=== PATIENT | male | born 1995 | race Caucasian/White ===

== ENCOUNTER 2020-09-14 00:51 | Day surgery (SDC) | payer OTHER, SELFPAY ==
[2020-08-24 14:52] VITALS: BMI 28.8
--- NOTE | 2020-09-14 07:56 | WPDHPUPDATE1 ---
History and Physical Update Update Date/Time: 09/14/20 07:56 History and Physical has been reviewed, including an updated exam of the patient. There are NO changes in the patient's condition. Risks, benefits, and alternatives have been discussed and questions answered. Patient agrees to proceed with procedure.
[2020-09-14 08:02] VITALS: BMI 27.4
[2020-09-14 08:05] VITALS: BP 130/78; PULSE 75; RESP 20; TEMP 36.3; O2SAT 96
[2020-09-14] MEDS: LACTATED RINGERS 1,000 ML 150 ML IV CONT (08:16)
--- NOTE | 2020-09-14 08:31 | P.PNAN_ITS ---
Anes - Initial Pre Proc Eval Procedure: Operation Date: 09/14/20 09:00 Proposed Procedures p Esophagogastroduodenoscopy & Colonoscopy - Parrish Sheikh MD Date/Time: 09/14/20 08:31 Surgeon: Parrish Sheikh MD Pre Op Diagnosis: blood in stool, epigastric pain Patient Data Age: 25 Gender: M Height: 1.88 m Weight: 96.9 kg Allergies Allergy/AdvReac Type Severity Reaction Status Date / Time No Known Allergies Allergy Verified 09/14/20 08:00 Home Medications Medication Instructions Recorded Confirmed Type sodium,potassium,mag sulfates 17.5 See Rx Instructions PO .COMPLEX 08/15/20 Rx gram-3.13 gram-1.6 gram oral soln #354 ml Patient hx anesthesia problems: none Family hx anesthesia problems: none [facility] Past Medical History Medical History (Updated 09/14/20 @ 08:30 by Robby Younger MD) Asthma Depression Social History Social History Smoking status: Never smoker Alcohol intake: never Substance use: never Substance use type: does not use Living arrangements: with family Spiritual care concerns: No Anes - Eval Final PreProcedure Day of Procedure 09/14/20 08:31 Patient weight: overweight Heart: regular rate and rhythm Lungs: clear to auscultation Airway: Mallampati scale class II Neurological: alert and oriented Last oral intake: >/= 8 hours ASA classification: II Emergent: no Anesthetic plan: proceed Anesthesia type and monitoring: general GIVS and standard monitoring Informed Consent: The patient's anesthetic plan and its attendant risks and benefits were discussed with the patient/family/POA. Questions were solicited and answers provided to the satisfaction of the patient/family/POA.
--- NOTE | 2020-09-14 09:24 | P.CONGI_ITS ---
Assessment and Plan Assessment and plan (1) IBS (irritable bowel syndrome): Code(s): K58.9 - Irritable bowel syndrome without diarrhea Status: Acute Assessment and Plan: Symptom complex most consistent with irritable bowel syndrome. Plan is for high-fiber diet. given patient's tTG level is elevated. Would avoid wheat until this is evaluated more thoroughly with EGD and biopsy. (2) Epigastric abdominal pain: Code(s): R10.13 - Epigastric pain Status: Acute Assessment and Plan: Patient has abdominal pain intermittently appears to be in the epigastric area. This along with his elevated tTG will prompt an EGD for evaluation also biopsied the small bowel. Trial of antacids in the interim is suggested. (3) Blood in stool: Code(s): K92.1 - Melena Status: Acute Assessment and Plan: Patient describes intermittent bright red blood per rectum for this reason colonoscopy will be performed. As well as to evaluate his abdominal pain. (4) Elevated anti-tissue transglutaminase (tTG) IgA level: Code(s): R76.8 - Other specified abnormal immunological findings in serum Status: Acute GI Consult Note Consult date/time: 09/14/20 09:24 HPI: Nirav Huynh is a 25 year old male presents for GI endoscopy. Patient has a long history of abdominal complaints. Intermittent diarrhea. Several times a month. Typically lasting only for a few hours. He has on occasion notice bright red blood per rectum. He has frequent nausea vomiting. After being seen in the office serum tTG level was noted to be elevated. Patient presents for today for GI endoscopy for further evaluation. Review of Systems Review of Systems: All systems reviewed & are unremarkable except as noted in HPI and below [facility] Past Medical History Medical History (Updated 09/14/20 @ 09:26 by Parrish Sheikh MD) Asthma Depression Social History Social History Smoking status: Never smoker Alcohol intake: never Substance use: never Substance use type: does not use Living arrangements: with family Spiritual care concerns: No Meds Home Medications and Allergies Home Medications Medication Instructions Recorded Confirmed Type sodium,potassium,mag sulfates 17.5 See Rx Instructions PO .COMPLEX 08/15/20 Rx gram-3.13 gram-1.6 gram oral soln #354 ml Allergies Allergy/AdvReac Type Severity Reaction Status Date / Time No Known Allergies Allergy Verified 09/14/20 08:00 Exam Narrative: Exam Narrative: Physical exam reveals patient be alert. Vital signs stable. HEENT exam is unremarkable. Patient anicteric. Lungs are clear to auscultation and percussion. Heart is without murmur or extra sounds. Abdominal exam bowel sounds present soft nontender with no organomegaly. Digital external rectal exam normal.
[2020-09-14 10:02] VITALS: BP 97/57; PULSE 67; RESP 20; O2SAT 97
[2020-09-14 10:12] VITALS: BP 122/64; PULSE 67; RESP 18; O2SAT 97
[2020-09-14 10:22] VITALS: BP 118/68; PULSE 62; RESP 16; O2SAT 97
[2020-09-14 10:32] VITALS: BP 117/68; PULSE 63; RESP 18; O2SAT 98
== END 2020-09-14 10:45 | disposition home or self-care (01) ==
PROVIDERS: PCP Family Medicine; Visit Provider Internal Medicine Gastroenterology
PROC: 0DJ08ZZ Inspection of Upper Intestinal Tract, Via Natural or Artificial Opening Endoscopic (ICD-10-PCS; CPT 43235; principal; 2020-09-14 09:00)
DX: K51.30 Ulcerative (chronic) rectosigmoiditis without complications (principal); R10.13 Epigastric pain; K52.9 Noninfective gastroenteritis and colitis, unspecified; K62.89 Other specified diseases of anus and rectum; R76.8 Other specified abnormal immunological findings in serum; J45.909 Unspecified asthma, uncomplicated; F32.9 Major depressive disorder, single episode, unspecified
CPT/HCPCS: 45380; 43239; 87081; 88305; J2001; J2704; J7120

== ENCOUNTER 2022-05-16 10:19 | Outpatient (CLI) | payer BC, SELFPAY ==
[2022-05-16 10:31] LABS: Hematocrit 43.4 % (42.0-52.0); Hemoglobin 15.2 g/dL (14.0-18.0); Mean Corpuscular Hemoglobin 29.9 pg (26-34); Mean Corpuscular Volume 85.3 fl (80-100); Mean Platelet Volume 9.3 fl (7.4-10.4); Platelet Count Result 328 k/mm3 (150-375); Red Blood Count 5.09 M/mm3 (4.6-6.20); White Blood Count 4.9 K/mm3 (4.5-10.0)
[2022-05-16 10:47] LABS: Alanine Aminotransferase 35 U/L (6-50); Albumin Level 5.3 g/dL (3.5-5.1); Alkaline Phosphatase 79 U/L (38-126); Anion Gap 8 mmol/L (8-16); Aspartate Amino Transferase 26 U/L (17-59); Bilirubin,Total 0.5 mg/dL (0.2-1.3); Blood Urea Nitrogen 11 mg/dL (9-20); CRP < 0.5 mg/dL (<1.0); Calcium 9.7 mg/dL (8.4-10.2); Carbon Dioxide 28 mmol/L (22-30); Chloride 101 mmol/L (98-107); Estimated Glomerular Filt Rate > 60; Glucose 104 mg/dL (65-110); Potassium 4.3 mmol/L (3.4-5.0); Sodium 137 mmol/L (137-145)
[2022-05-16 11:16] LABS: Erythrocyte Sedimentation Rate 13 mm/hr (0-20)
== END 2022-05-16 10:20 | disposition home or self-care (01) ==
LOC: ANHLAB 10:20
PROVIDERS: PCP Family Medicine; Visit Provider Nurse Practitioner
DX: K51.30 Ulcerative (chronic) rectosigmoiditis without complications (principal)
CPT/HCPCS: 36415; 80053; 85027; 85652; 86140

== ENCOUNTER 2025-01-05 18:51 | Emergency (ER) | payer BC, SELFPAY ==
[2025-01-05 19:08] VITALS: BP 117/74; PULSE 74; RESP 16; TEMP 35.9; O2SAT 98
[2025-01-05 19:30] LABS: EDCOVIDSCREEN Negative (Negative); EDINFLUASCREEN Negative (Negative); EDINFLUBSCREEN Negative (Negative); EDSTREPNEGPOS1 Negative (Negative)
--- NOTE | 2025-01-05 19:41 | ED.GENADULT ---
HPI - General Adult General Chief complaint: Upper Respiratory Infection Stated complaint: Sore Throat Time Seen by Provider: 01/05/25 19:31 Source: patient and RN notes reviewed Mode of arrival: ambulatory Limitations: no limitations History of Present Illness HPI narrative: 29-year-old male patient presents today complaining of a 3 day history of sore throat, nausea, diarrhea, slight cough. Patient has vomited twice since onset of symptoms. He has had diarrhea 3 times per day without blood or mucous. Denies fever, abdominal pain, congestion, rhinorrhea, any recent antibiotics. Currently rates his pain 8/10 and has been taking DayQuil with some improvement. History of tonsillectomy. Related Data Home Medications ?Medication ?Instructions ?Recorded ?Confirmed ?Last Taken ?Type citalopram 20 mg tablet mg 01/05/25 Unknown History Allergies Allergy/AdvReac Type Severity Reaction Status Date / Time No Known Allergies Allergy Verified 01/05/25 19:03 [facility] Past Medical History Medical History Depression Asthma Social History Social History Smoking status: Never smoker Alcohol intake: never Substance use: never Substance use type: does not use Lack of Transportation: No Lack of Food: Never True Current Housing: I Have Housing Concerned About Future Housing: No Difficulty Paying Gas/Electric Bills: No Difficulty Paying for Meds: No Currently Unemployed: No Education: High School Diploma/GED Difficulty w/ Childcare or Family Care: No Living arrangements: with family Spiritual care concerns: No Comments At time of signature, I have reviewed and agree with nursing past medical, surgical, social and family history unless otherwise noted. Please see nursing chart for further information. There is no relevant family history pertinent to the presenting complaint Exam Narrative: GENERAL: Well-appearing, well-nourished, and in no acute distress. HEAD: Normocephalic, atraumatic. EYES: EOMI. No redness or drainage. Conjunctivae normal. ENT: Mucous membranes pink and moist. Nares clear. No rhinorrhea. TMs normal bilaterally. Throat normal. Uvula midline. NECK: Normal AROM. Supple. No lymphadenopathy. CHEST: No respiratory distress. Clear to auscultation. HEART: Regular rate and rhythm. No murmur appreciated. ABDOMEN: Soft, nondistended, normal active bowel sounds.+ mild generalized abdominal tenderness without rebound or guarding. EXTREMITIES: Normal range of motion. No edema. SKIN: Warm, dry, no rash. Capillary refill normal. Normal skin turgor. NEURO: No focal deficits. Alert and oriented x3. Gait steady. PSYCH: Normal affect. No signs of depression or anxiety. Course Course Level of Care: Express Care Visit Vital Signs Vital signs: Vital Signs Temperature 96.7 F L 01/05/25 19:08 Pulse Rate 74 01/05/25 19:08 Respiratory Rate 16 01/05/25 19:08 Blood Pressure 117/74 01/05/25 19:08 Pulse Oximetry 98 01/05/25 19:08 Temperature 96.7 F L 01/05/25 19:08 Pulse Rate 74 01/05/25 19:08 Respiratory Rate 16 01/05/25 19:08 Blood Pressure 117/74 01/05/25 19:08 Pulse Oximetry 98 01/05/25 19:08 Reviewed Medical Decision Making MDM Narrative Medical decision making narrative: 29-year-old male patient presents today complaining of a 3 day history of sore throat, nausea, diarrhea, slight cough. Patient has vomited twice since onset of symptoms. He has had diarrhea 3 times per day without blood or mucous. Denies fever, abdominal pain, congestion, rhinorrhea, any recent antibiotics. Currently rates his pain 8/10 and has been taking DayQuil with some improvement. Upon exam, mild generalized abdominal tenderness without rebound or guarding. COVID negative, rapid strep negative, influenza negative. Strep culture pending. Patient declines prescription for Zofran. Symptoms likely viral in etiology. Discussed [id number] medication use and duration of illness. Anticipatory guidance given. Differential Diagnosis Differential Diagnosis: Viral syndrome, food poisoning, gastroenteritis, dehydration, strep throat, influenza, COVID Vital Signs Vital Signs: Vital Signs Temperature 96.7 F L 01/05/25 19:08 Pulse Rate 74 01/05/25 19:08 Respiratory Rate 16 01/05/25 19:08 Blood Pressure 117/74 01/05/25 19:08 Pulse Oximetry 98 01/05/25 19:08 Temperature 96.7 F L 01/05/25 19:08 Pulse Rate 74 01/05/25 19:08 Respiratory Rate 16 01/05/25 19:08 Blood Pressure 117/74 01/05/25 19:08 Pulse Oximetry 98 01/05/25 19:08 Lab Data Lab results reviewed: Yes I reviewed the patient's lab results. Labs: Lab Results 01/05/25 Range/Units 19:28 POC Influenza A Ag Negative (Negative) POC Influenza B Ag Negative (Negative) POC SARS CoV-2 Ag Negative (Negative) POC Grp A Strep Screen Negative (Negative) Critical Care Time Critical Care Time Critical Care Time: No Discharge Plan Discharge Clinical Impression: Viral syndrome Patient Disposition: Home Condition: Stable Instructions: Dehydration (DC), Viral Syndrome (ED) Additional Instructions: Your COVID-19, influenza, and rapid strep swab work negative today at [facility]. You will be notified in a few days if the culture comes back positive for strep, and appropriate antibiotics will be called in for you at that time. Your symptoms are likely due to a viral illness, which is not treated with antibiotics. Viral symptoms can be present for up to 7-10 days. Take Tylenol for fever or pain. Rest and stay hydrated with water and electrolyte containing fluids. Follow up with your PCP in 3-4 days if symptoms are not improving. Go to the ER immediately if you have any difficulty breathing or swallowing, cannot stay orally hydrated, or note blood/mucus in your stool. Patient Language: Lao Prescriptions: No Action citalopram 20 mg tablet Follow-up/Referrals: PHYSICIAN,SPEECH AND DRAMA TEACHER [Primary Care Provider, Internal Medicine] Stand Alone Forms: Work/School Release IP Time of Disposition: 19:43
== END 2025-01-05 19:48 | disposition home or self-care (01) ==
PROVIDERS: Emergency Provider Nurse Practitioner
DX: B34.9 Viral infection, unspecified (principal); Z20.822 Contact with and (suspected) exposure to COVID-19; J45.909 Unspecified asthma, uncomplicated
CPT/HCPCS: 87081; 87426; 87804; 87880; 99213; G0463

== ENCOUNTER 2025-01-08 09:15 | Emergency (ER) | payer BC, SELFPAY ==
[2025-01-08 09:30] VITALS: BP 120/73; PULSE 73; RESP 16; TEMP 35.8; O2SAT 100
--- NOTE | 2025-01-08 10:11 | ED_ITS ---
HPI - Eye Problem General Chief complaint: Eye Problems Stated complaint: EYE REDNESS Time Seen by Provider: 01/08/25 09:19 Source: patient Mode of arrival: ambulatory Limitations: no limitations History of Present Illness HPI Narrative: Nirav is a 29 year old male patient presenting to the clinic today with complaints of left eye redness x1 day. He reports his symptoms started yesterday with yellow/green drainage coming from the left eye. Woke up this morning it was matted shut. Recently was seen in the clinic and diagnosed with a viral illness. Denies any fevers this time. Denies any visual changes, fo reign body, or known eye injury. Related Data Home Medications ?Medication ?Instructions ?Recorded ?Confirmed ?Last Taken ?Type citalopram 20 mg tablet 20 mg 01/05/25 Unknown Hist ory Allergies Allergy/AdvReac Type Severity Reaction Status Date / Time No Known Allergies Allergy Verified 01/08/25 09:28 Review of Systems Review of Systems: Pertinent positives per HPI. Patient denies any fever, chills, rash, headache, visual changes, dizziness, sore throat, shortness of breath, chest pain, palpitations, nausea, vomiting, diarrhea, constipation, abdominal pain, or any urinary issues. [facility] Past Medical History Medical History Depression Asthma Social History Social History Smoking status: Never smoker Alcohol intake: never Substance use: never Substance use type: does not use Lack of Transportation: No Lack of Food: Never True Current Housing: I Have Housing Concerned About Future Housing: No Difficulty Paying Gas/Electric Bills: No Difficulty Paying for Meds: No Currently Unemployed: No Education: High School Diploma/GED Difficulty w/ Childcare or Family Care: No Living arrangements: with family Spiritual care concerns: No Comments At the time of my signature, I reviewed and agree with the nursing past medical, surgical, social, and family history. There is no relevant family history pertinent to the patient complaint. Exam Narrative: General: Well-developed, well nourished, in no apparent distress Head: Normocephalic, atraumatic Eyes: Pupils equally round and reactive to light bilaterally, EOM intact, right sclera and conjunctive clear, no discharge, lids normal, left sclera and conjunctiva injected with green mucopurulent discharge with normal lids, no foreign body visible Ears: TMs intact and clear, ear canals clear, no drainage, grossly hearing normal. Nose: Nares patent, no discharge, no inflammation, no sinus tenderness. Mouth: Oropharynx without lesions or masses, good dentition, MMM. Neck: Supple, trachea midline, no enlargement of anterior or posterior cervical nodes, no thyroid masses or goiter palpable. Cardio: Regular rate and rhythm, s1 and s2 normal, no murmur appreciated. Resp: Clear to auscultation bilaterally anteriorly and posteriorly, no rhonchi, rales, wheezing or rubs Course Course Emergency Course: Portions of this record may have been created with voice recognition software. Level of Care: Express Care Visit Vital Signs Vital signs: Vital Signs Temperature 35.8 C L 01/08/25 09:30 Pulse Rate 73 01/08/25 09:30 Respiratory Rate 16 01/08/25 09:30 Blood Pressure 120/73 01/08/25 09:30 Pulse Oximetry 100 01/08/25 09:30 Oxygen Delivery Room Air 01/08/25 09:30 Temperature 35.8 C L 01/08/25 09:30 Pulse Rate 73 01/08/25 09:30 Respiratory Rate 16 01/08/25 09:30 Blood Pressure 120/73 01/08/25 09:30 Pulse Oximetry 100 01/08/25 09:30 Oxygen Delivery Room Air 01/08/25 09:30 Vital signs reviewed MDM - Eye Problem MDM Narrative Medical decision making narrative: At the time of visit patient is resting comfortably on the exam table. Patient appears to be nontoxic. complaints of left eye redness x1 day. He reports his symptoms started yesterday with yellow/green drainage coming from the left eye. Woke up this morning it was matted shut. Recently was seen in the clinic and diagnosed with a viral illness. Denies any fevers this time. Denies any visual changes, foreign body, or known eye injury. On exam patient has left sclera and conjunctiva injected with green mucopurulent discharge, no eyelid swelling, no foreign body Plan: I suspect patient has a left eye conjunctivitis. Prescription for tobramycin eyedrops was sent to the pharmacy. Work note was given. Supportive measures were discussed with the patient and they voiced understanding discharge instructions and agrees to treatment plan. Return precautions reviewed Differential Diagnosis Differential diagnosis: Likely corneal abrasion, conjunctivitis, acute iritis, periorbital cellulitis, subconjunctival hemorrhage, corneal ulcer and ruptured globe Discharge Plan Discharge Clinical Impression: Conjunctivitis Qualifiers: Conjunctivitis type: acute Acute conjunctivitis type: bacterial Laterality: left Qualified Code(s): H10.32 - Unspecified acute conjunctivitis, left eye Patient Disposition: Home Condition: Stable Instructions: Antibiotic Form, Conjunctivitis (ED) Additional Instructions: Conjunctivitis is considered contagious for 24 hours while on the antibiotic. Practice good hand washing techniques Avoid touching eyes Instill eyedrops as prescribed May use warm moist washcloth to help remove eye discharge If eyes are matted shut-do not pry eyes open-use a warm moist cloth to loosen matting and wipe matter away from eye May take Tylenol/Motrin as needed for pain or fever May take Benadryl as needed for itching Follow-up with your PCP in 3-5 days if symptoms persist or sooner if they worsen Go to the emergency room if you develop any fever that is not controlled by Tylenol or Motrin, loss of vision, eye pain, increase eye swelling,visual changes, headache, confusion, lethargy, weakness, chest pain, or shortness of breath. Patient Language: Serbian Prescriptions: New tobramycin 0.3 % drops 1 drp LEFT EYE Q4H 7 Days Qty: 5 0RF No Action citalopram 20 mg tablet 20 mg Follow-up/Referrals: PHYSICIAN,PSYCHOTHERAPIST COUNSELOR [Primary Care Provider, Internal Medicine] Stand Alone Forms: Work/School Release IP Time of Disposition: 09:55 Quality NIHSS Nursing Documentation ED NIHSS nursing documentation: reviewed/agree
== END 2025-01-08 09:59 | disposition home or self-care (01) ==
PROVIDERS: Emergency Provider Nurse Practitioner Family
DX: H10.32 Unspecified acute conjunctivitis, left eye (principal); J45.909 Unspecified asthma, uncomplicated; F32.A Depression, unspecified
CPT/HCPCS: 99213; G0463